=== PATIENT | male | born 1965 | race American Indian/Alaskan Native ===

== ENCOUNTER 2016-12-20 12:07 | Emergency (ER) | payer BC, MEDICAID ==
[2016-12-20 12:54] VITALS: BP 149/95
--- NOTE | 2016-12-20 15:37 | XRay Report ---
LUMBOSACRAL SPINE, 3 VIEWS: History: Back pain Findings: There is straightening of normal lordosis. No evidence for compression deformity, subluxation or bone lesion. Mild disc space narrowing is noted at L5-S1. There is mild diffuse facet arthropathy. The sacrum and SI joints are within normal limits. Impression: Mild lumbar spondylosis. Straightening of the normal lordosis. No acute process.
--- NOTE | 2016-12-20 16:16 | Emergency Department Report ---
ED Back Pain/Injury HPI - General Chief Complaint: Back Pain/Injury Stated Complaint: NUMBNESS /EGS/FEET/LOWER BACK Time Seen by Provider: 12/20/16 14:29 Source: patient Limitations: No Limitations - History of Present Illness Initial Comments: PT c/o low back pain x 2 days. PT states his back pain flared up after lifting a bag of groceries. PT states he was dx with a slipped disc 10 years ago. PT states his PCP has him on Hydrocodone 10 mg every month for his pain. PT also c /o diabetic neuropathy pain x 5 years. PT states he ran out of his pain medication 2 days ago and he has not had any to take. MD Complaint: back pain Onset/Timin -: Gradual, days(s) Similar Symptoms Previously: Yes Radiation: left leg, right leg Severity scale (0 -10): 10 Consistency: constant Improves With: none Worsens With: movement Associated Symptoms: numbness (to legs x 5 years - hx of dm neuropathy ). denies: weakness, difficulty walking, difficulty urinating, incontinence, abdominal pain - Related Data Home Medications Medication Instructions Recorded Confirmed Last Taken Insulin NPH, Human [NovoLIN N] 10 unit SUB-Q BID 11/10/13 11/10/13 Unknown Insulin Regular, Human [HumuLIN R] 10 unit SUB-Q QAC 11/10/13 11/10/13 Unknown Previous Rx's Medication Instructions Recorded Last Taken Type Ciprofloxacin HCl [Ciprofloxacin 500 mg PO Q12H #60 tab 11/17/13 Unknown Rx TAB] Gabapentin [Neurontin] 300 mg PO Q8HR #90 capsule 11/17/13 Unknown Rx Insulin NPH, Human [NovoLIN N] 17 unit SUB-Q BIDDIAB #30 ml 11/17/13 Unknown Rx Insulin Regular, Human [HumuLIN R] 0 units SUB-Q ACHS #30 units 11/17/13 Unknown Rx metroNIDAZOLE [Flagyl] 500 mg PO Q8HR #90 tablet 11/17/13 Unknown Rx Acetaminophen/Codeine [Tylenol #3] 1 tab PO Q6H PRN #10 tab 12/20/16 Unknown Rx methOCARBAMOL [Robaxin TAB] 500 mg PO Q6H PRN #15 tablet 12/20/16 Unknown Rx Allergies Allergy/AdvReac Type Severity Reaction Status Date / Time No Known Allergies Allergy Verified 02/25/14 17:15 ED Review of Systems ROS: Stated complaint: NUMBNESS /EGS/FEET/LOWER BACK Other details as noted in HPI Comment: All other systems reviewed and negative Constitutional: denies: chills, fever Gastrointestinal: denies: abdominal pain Genitourinary: denies: dysuria Musculoskeletal: back pain (chronic - out of medication ) Neurological: numbness (to legs ) ED Past Medical Hx - Past Medical History Hx Congestive Heart Failure: No Hx Diabetes: Yes (insulin-dependent) Hx Asthma: No Hx COPD: No Additional medical history: L-5 DJD-chronic pain - Surgical History Additional Surgical History: foot surgery - Social History Smoking Status: Never Smoker Substance Use Type: None - Medications Home Medications: Home Medications Medication Instructions Recorded Confirmed Last Taken Type Insulin NPH, Human [NovoLIN N] 10 unit SUB-Q BID 11/10/13 11/10/13 Unknown History Insulin Regular, Human [HumuLIN R] 10 unit SUB-Q QAC 11/10/13 11/10/13 Unknown History Ciprofloxacin HCl [Ciprofloxacin 500 mg PO Q12H #60 tab 11/17/13 Unknown Rx TAB] Gabapentin [Neurontin] 300 mg PO Q8HR #90 capsule 11/17/13 Unknown Rx Insulin NPH, Human [NovoLIN N] 17 unit SUB-Q BIDDIAB #30 ml 11/17/13 Unknown Rx Insulin Regular, Human [HumuLIN R] 0 units SUB-Q ACHS #30 units 11/17/13 Unknown Rx metroNIDAZOLE [Flagyl] 500 mg PO Q8HR #90 tablet 11/17/13 Unknown Rx Acetaminophen/Codeine [Tylenol #3] 1 tab PO Q6H PRN #10 tab 12/20/16 Unknown Rx methOCARBAMOL [Robaxin TAB] 500 mg PO Q6H PRN #15 tablet 12/20/16 Unknown Rx ED Physical Exam - General Limitations: No Limitations General appearance: alert, in no apparent distress - Head Head exam: Present: atraumatic, normocephalic - Eye Eye exam: Present: normal appearance. Absent: conjunctival injection - ENT ENT exam: Present: normal exam, normal external ear exam - Neck Neck exam: Present: normal inspection, full ROM - Respiratory Respiratory exam: Present: normal lung sounds bilaterally. Absent: respiratory distress - Cardiovascular Cardiovascular Exam: Present: regular rate, normal rhythm - GI/Abdominal GI/Abdominal exam: Present: soft. Absent: tenderness - Extremities Exam Extremities exam: Present: normal inspection, normal capillary refill, other (+ 2 DP mikala, no homen's mikala. no ulcer or erytherma to soles of feet mikala ). Absent : tenderness, pedal edema, joint swelling, calf tenderness - Back Exam Back exam: Present: normal inspection, tenderness, paraspinal tenderness (R lumbar ), vertebral tenderness (lumbar ). Absent: CVA tenderness (R), CVA tenderness (L) - Expanded Back Exam Expanded Back exam: Absent: saddle anesthesia Back exam: Positive Straight Leg Raise: Left, Right - Neurological Exam Neurological exam: Present: alert, oriented X3 - Psychiatric Psychiatric exam: Present: normal affect, normal mood - Skin Skin exam: Present: warm, dry, intact, normal color ED Course Vital Signs 12/20/16 12:51 Temperature 97.5 F L Pulse Rate 76 Respiratory 18 Rate Blood Pressure 149/95 O2 Sat by Pulse 100 Oximetry - Reevaluation(s) Reevaluation #1: 12/20/16 16:28 PT aware of XR result. PT aware he will need to follow up with PCP. PT has no questions at this time. - Pulse Oximetry Interpretation Digit-Finger Initial Pulse Oximetry Readin Actions Taken: none ED Medical Decision Making - Differential Diagnosis chronic pain, low back pain, Critical care attestation.: If time is entered above; I have spent that time in minutes in the direct care of this critically ill patient, excluding procedure time. ED Disposition Clinical Impression: Acute exacerbation of chronic low back pain Spondylosis Qualifiers: Spinal region: lumbar Spinal osteoarthritis complication: unspecified spinal osteoarthritis Qualified Code(s): M47.816 - Spondylosis without myelopathy or radiculopathy, lumbar region Disposition: DISCHARGED TO HOME OR SELFCARE Is pt being admited?: No Does the pt Need Aspirin: No Condition: Stable Instructions: Low Back Strain (ED), Acute Low Back Pain (ED) Additional Instructions: Follow up with Dr Loco Bustos's office next week No driving or ETOH after Robaxin or Tylenol #3 Prescriptions: Acetaminophen/Codeine [Tylenol #3] 1 tab PO Q6H PRN #10 tab PRN Reason: Pain , Severe (7-10) methOCARBAMOL [Robaxin TAB] 500 mg PO Q6H PRN #15 tablet PRN Reason: Muscle Spasm Referrals: PRIMARY CARE, [Primary Care Provider] - 3-5 Days LOCO BUSTOS MD [Referring] - 3-5 Days Time of Disposition: 16:31
== END 2016-12-20 16:39 | disposition home or self-care (01) ==
LOC: ED 12:07
DX: M47.816 Spondylosis without myelopathy or radiculopathy, lumbar region (principal); G89.29 Other chronic pain; E10.9 Type 1 diabetes mellitus without complications; Z79.4 Long term (current) use of insulin
CPT/HCPCS: 72100

== ENCOUNTER 2021-01-17 11:10 | Outpatient (CLI) | payer MEDICAID ==
[2021-01-17] MEDS ORDERED: LIDOCAINE (4%) 40 MG/ML TOPICAL SOLN 50 ML BOTTLE TP ONE (13:13)
== END 2021-01-17 11:11 | disposition home or self-care (01) ==
LOC: WOUND 11:10
PROVIDERS: ATTEND Surgery
DX: E11.621 Type 2 diabetes mellitus with foot ulcer (principal); L97.512 Non-pressure chronic ulcer of other part of right foot with fat layer exposed; L84 Corns and callosities; I10 Essential (primary) hypertension
CPT/HCPCS: 11042; G0463; 99205

== ENCOUNTER 2021-03-12 08:52 | Outpatient (CLI) | payer MEDICAID ==
[2021-03-12] MEDS ORDERED: LIDOCAINE (4%) 40 MG/ML TOPICAL SOLN 50 ML BOTTLE TP ONE (09:18)
== END 2021-03-12 08:53 | disposition home or self-care (01) ==
LOC: WOUND 08:52
PROVIDERS: ATTEND Surgery
DX: E11.621 Type 2 diabetes mellitus with foot ulcer (principal); L97.512 Non-pressure chronic ulcer of other part of right foot with fat layer exposed; L84 Corns and callosities; I10 Essential (primary) hypertension

== ENCOUNTER 2021-03-28 10:38 | Outpatient (CLI) | payer MEDICAID ==
--- NOTE | 2021-03-28 14:50 | Vascular Lab Report ---
DUPLEX DOPPLER LOWER EXTREMITY ARTERIAL, RIGHT INDICATION / CLINICAL INFORMATION: CHRONIC ULCER OF OTHER PART OF RIGHT FOOT. TECHNIQUE: Arterial duplex examination of the right lower extremity performed using B-mode, color alexander w and spectral Doppler assessment. FINDINGS: RIGHT: Common Femoral Artery: PSV 113 cm/sec. Triphasic waveform. Proximal SFA: PSV 95 cm/sec. Triphasic waveform. Mid SFA: PSV 89 cm/sec. Triphasic waveform. Distal SFA: PSV 103 cm/sec. Triphasic waveform. Popliteal artery: PSV 102 cm/sec. Triphasic waveform. Posterior tibial artery: PSV 96 cm/sec. Triphasic waveform. Dorsalis Pedis Artery: PSV 56 cm/sec. Monophasic waveform. Right LAURIE: Not calculated. IMPRESSION: 1. Multifocal atherosclerotic disease is present throughout the right lower extremity. Transition fro m triphasic to monophasic waveform in the dorsalis pedis artery likely from underlying stenosis. Ankle-Brachial Index (LAURIE): - Calcified arteries > 1.4 - Normal = 0.9-1.4 - Mild PAD = 0.7-0.89 - Moderate PAD = 0.51-0.69 - Severe PAD < 0.5 Doppler Waveform: - Triphasic is normal. - Biphasic is abnormal if clear transition from triphasic signal along vascular tree. - Monophasic is abnormal. Scribed by: Elham Gould RDMS, T Scribed: 03/28/2021 1:38 PM I have reviewed the images, agree with this report, and edited this report as needed. Signer Name: Faisal Cristina MD Signed: 03/28/2021 2:46 PM Workstation Name: [email or web address]
== END 2021-03-28 10:39 | disposition home or self-care (01) ==
LOC: VAS 10:38
PROVIDERS: ATTEND Surgery
DX: I70.201 Unspecified atherosclerosis of native arteries of extremities, right leg (principal); L97.512 Non-pressure chronic ulcer of other part of right foot with fat layer exposed

== ENCOUNTER 2021-04-02 12:58 | Outpatient (CLI) | payer MEDICAID ==
[2021-04-02] MEDS ORDERED: LIDOCAINE (4%) 40 MG/ML TOPICAL SOLN 50 ML BOTTLE TP SCH (13:15)
== END 2021-04-02 12:59 | disposition home or self-care (01) ==
LOC: WOUND 12:58
PROVIDERS: ATTEND Surgery
DX: E11.621 Type 2 diabetes mellitus with foot ulcer (principal); L97.512 Non-pressure chronic ulcer of other part of right foot with fat layer exposed; L84 Corns and callosities; I10 Essential (primary) hypertension

== ENCOUNTER 2021-04-09 13:49 | Outpatient (CLI) | payer MEDICAID ==
[2021-04-09] MEDS ORDERED: LIDOCAINE (4%) 40 MG/ML TOPICAL SOLN 50 ML BOTTLE TP ONE (15:00)
== END 2021-04-09 13:50 | disposition home or self-care (01) ==
LOC: WOUND 13:49
PROVIDERS: ATTEND Surgery
DX: E11.621 Type 2 diabetes mellitus with foot ulcer (principal); L97.512 Non-pressure chronic ulcer of other part of right foot with fat layer exposed; L84 Corns and callosities; I10 Essential (primary) hypertension
CPT/HCPCS: 82962

== ENCOUNTER 2021-04-17 13:44 | Outpatient (CLI) | payer MEDICAID ==
--- NOTE | 2021-04-17 16:46 | Magnetic Resonance Report ---
MR of the right foot without contrast. TECHNIQUE: Axial, coronal and sagittal multisequence images of the right foot performed. COMPARISON: 11/11/2013 MRI. FINDINGS: Focal skin wound at the plantar surface of the forefoot, along the undersurface of the thir d metatarsal head. Extensive soft tissue edema noted about the third metatarsal head and base of the proximal phalanx. Tiny low signal intensity foci likely reflect gas. No definite abscess or other org anized collection, within the limitations of this noncontrast study. Destructive changes involving th e third metatarsal head with abnormal bone marrow edema extending to the midportion of the third meta tarsal shaft (series 8 image 10). Dorsal subluxation of the third MTP joint. Abnormal bone marrow luis antonio ma noted within the base of the third toe proximal phalanx. No additional sites of acute osteomyelitis identified. Flexion deformity noted at the great toe IP ramin int with degenerative changes of the MTP joint. Remote deformity of the second metatarsal shaft may r eflect sequela of prior trauma or infection. Corticated erosion of the distal aspect of the second me tatarsal head likely reflects chronic mechanical erosion. There is no abnormal bone marrow signal int ensity in this region to suggest acute osteomyelitis. There is denervation atrophy of the intrinsic foot musculature. Nonspecific subcutaneous edema along the dorsum of the midfoot and forefoot there is nonspecific though may reflect cellulitis. IMPRESSION: 1. Focal skin wound of the plantar forefoot with osteomyelitis centered at the third metatarsal head with involvement of the base of the third toe proximal phalanx. 2. Extensive subcutaneous edema noted in this region, consistent with cellulitis. There is no definit e abscess or other organized collection, within the limitations of this noncontrast study. 3. Nonspecific subcutaneous edema of the dorsum of the midfoot and forefoot may reflect cellulitis. 4. Other incidental findings noted above. Signer Name: Juan Carlos Art MD Signed: 04/17/2021 4:42 PM Workstation Name: [id number]
== END 2021-04-17 13:45 | disposition home or self-care (01) ==
LOC: MRI 13:44
PROVIDERS: ATTEND Surgery
DX: M86.8X2 Other osteomyelitis, upper arm (principal); L97.512 Non-pressure chronic ulcer of other part of right foot with fat layer exposed; M79.89 Other specified soft tissue disorders

== ENCOUNTER 2021-04-23 14:04 | Outpatient (CLI) | payer MEDICAID ==
[2021-04-23] MEDS ORDERED: LIDOCAINE (4%) 40 MG/ML TOPICAL SOLN 50 ML BOTTLE TP ONE (15:00)
== END 2021-04-23 14:05 | disposition home or self-care (01) ==
LOC: WOUND 14:04
PROVIDERS: ATTEND Surgery
DX: E11.621 Type 2 diabetes mellitus with foot ulcer (principal); L97.512 Non-pressure chronic ulcer of other part of right foot with fat layer exposed; E11.69 Type 2 diabetes mellitus with other specified complication; M86.071 Acute hematogenous osteomyelitis, right ankle and foot; I10 Essential (primary) hypertension

== ENCOUNTER 2022-01-25 10:20 | Emergency (ER) | payer MEDICAID ==
[2022-01-25 10:32] VITALS: BP 149/86
== END 2022-01-26 22:18 | disposition left against medical advice (07) ==
LOC: ED 10:20
DX: M54.9 Dorsalgia, unspecified (principal); Z53.21 Procedure and treatment not carried out due to patient leaving prior to being seen by health care provider